=== PATIENT | female | born 2000 | race Caucasian/White ===

== ENCOUNTER 2023-02-14 13:38 | Emergency (ER) | payer MEDICAID ==
[~2023-02-14] VITALS: Ht 154.9 cm; Wt 57.2 kg
[2023-02-14 13:42] VITALS: BP 111/67
--- NOTE | 2023-02-14 13:48 | NUR ---
pt ambulatory to bed 06
[2023-02-14] MEDS ORDERED: KETOROLAC 60 MG/2 ML VIAL IM ONE (14:25)
[2023-02-14] MEDS ORDERED: HYDR-5191 PO (14:34)
[2023-02-14] MEDS ORDERED: IBUP-2213 PO (14:34)
== END 2023-02-14 14:44 | disposition home or self-care (01) ==
LOC: MED 13:38
DX: R10.11 Right upper quadrant pain (principal); R19.7 Diarrhea, unspecified; Z98.890 Other specified postprocedural states
CPT/HCPCS: 99283

== ENCOUNTER 2023-02-25 12:18 | Emergency (ER) | payer MEDICAID ==
[~2023-02-25] VITALS: Ht 162.6 cm; Wt 68.0 kg
[~2023-02-25 12:18] MED LIST: HYDR-5191 PO; IBUP-2213 PO
[2023-02-25 12:33] VITALS: BP 110/75; PULSE 18; RESP 20; TEMP 98; O2SAT 99
--- NOTE | 2023-02-25 13:08 | NUR ---
PT AMBULATED TO BED 02
--- NOTE | 2023-02-25 13:13 | NUR ---
MARGARITA SWABBED AND SENT TO LAB
--- NOTE | 2023-02-25 13:13 | NUR ---
PT GIVEN URINE SPECIMEN MD TONEY AT BEDSIDE FOR ASSESSMENT.
--- NOTE | 2023-02-25 13:41 | NUR ---
22 Y/O FEMALE BIB SELF, PT PRESENTS TO ED WITH C/O RIGHT LOWER QUADRANT PAIN FOR "MONTHS". PT HAS SURGICAL CONSULT WITH MD SAUER, BUT STATES SHE HAS BEEN HAVING TOO MUCH PAIN TODAY. WAS TOLD TO COME IN FOR INPATIENT SURGICAL REMOVAL OF GALLSTONES. STATES PAIN IS 6/10 TODAY. DENIES N&V, FEVERS, SOB, COUGH. STATES SHE HAS BEEN HAVING LOOSE STOOLS SINCE YESTERDAY, LAST BM WAS THIS MORNING. A&OX4, AMBULATES WITH STEADY GAIT, FRENCH SPEAKING. SKIN INTACT, PINK/WARM/DRY. ABD PAIN X4, NORMOACTIVE. FLAT/SOFT/GUARDING. MD MADE AWARE OF PT STATUS. PMH: GALLSTONES, BREAST AUGMENTATION NKA
--- NOTE | 2023-02-25 13:41 | NUR ---
Blood for labwork drawn from [employer]. Patient tolerated.
[2023-02-25 13:58] LABS: BASOPHILS % (AUTO) 0.8 % (0.0-2.0); EOSINOPHILS % (AUTO) 0.7 % (0.0-4.0); HEMATOCRIT 41.2 % (36-48); HEMOGLOBIN 13.9 g/dL (12.0-16.0); LYMPHOCYTES # (AUTO) 1.1 K/uL (2.5-16.5); LYMPHOCYTES % (AUTO) 26.4 % (20.5-51.1); MEAN CORPUSCULAR HEMOGLOBIN 30 pg (27-31); MEAN CORPUSCULAR HGB CONC 34 g/dL (33-37); MEAN CORPUSCULAR VOLUME 87.4 fL (80-94); MONOCYTES # (AUTO) 0.6 K/uL (0.8-1.0); MONOCYTES % (AUTO) 13.3 % (1.7-9.3); NEUTROPHILS # (AUTO) 2.5 K/uL (1.8-7.7); NEUTROPHILS % (AUTO) 58.8 % (42.2-75.2); PLATELET COUNT (AUTO) 240 K/uL (140-450); RED BLOOD CELL COUNT(AUTO) 4.72 MIL/uL (4.20-5.40); RED CELL DISTRIBUTION WIDTH 13.1 % (11.6-13.7); WHITE BLOOD COUNT (AUTO) 4.2 K/uL (4.8-10.8)
[2023-02-25] MEDS ORDERED: KETOROLAC 15 MG/ML VIAL IVP ONE (14:05)
--- NOTE | 2023-02-25 14:12 | NUR ---
Ultrasound at bedside.
[2023-02-25 14:25] LABS: PROTHROMBIN TIME 11.2 secs (10.8-13.4)
[2023-02-25 14:36] LABS: ALBUMIN 4.5 g/dL (3.4-5.0); ANION GAP 13.3 (8-16); CARBON DIOXIDE 28.4 mmol/L (21-32); CREATININE 0.6 mg/dL (0.6-1.3); POTASSIUM 3.7 mmol/L (3.5-5.1); TOTAL BILIRUBIN 1.9 mg/dL (0.0-1.0)
--- NOTE | 2023-02-25 16:15 | NUR ---
Patient discharged with v/s stable. Written and verbal after care instructions given and explained by Halima Menjivar ID #[id number]. Patient verbalized understanding. Ambulatory with steady gait. All questions addressed prior to discharge. Advised to follow up with PMD.
--- NOTE | 2023-02-25 16:30 | NUR ---
IV removed, catheter intact and site benign. Applied folded 4x4 gauze and tape to stop bleeding.
[2023-02-25 16:59] VITALS: BP 104/54; PULSE 94; RESP 16; TEMP 97.7; O2SAT 99
== END 2023-02-25 16:30 | disposition home or self-care (01) ==
LOC: MED 12:18
DX: R10.31 Right lower quadrant pain (principal); Z20.822 Contact with and (suspected) exposure to COVID-19; R19.7 Diarrhea, unspecified; Z79.899 Other long term (current) drug therapy
CPT/HCPCS: 36415; 76705; 80053; 81025; 83690; 85025; 85610; 86886; 86900; 86901; 87426; 96374; 99285; J1885; Q0092